=== PATIENT | female | born 1945 ===

== ENCOUNTER 2018-08-22 09:32 | Day surgery (SDC) | payer SELFPAY ==
[2018-08-22 11:25] VITALS: BMI 19.3
[2018-08-22 11:46] VITALS: RESP 18
[2018-08-22 11:56] LABS: BASO % 0.4 % (0.0-2.0); EOS # 0.5 K/uL (0.0-0.7); EOS % 8.2 % (0.0-4.0); HEMOGLOBIN 12.4 g/dL (12.0-16.0); LYMPH # 1.5 K/uL (1.0-4.3); LYMPH % 23.8 % (20.0-40.0); MEAN CELL VOLUME 82.5 fl (81.0-99.0); MEAN CORPUSCULAR HEMOGLOBIN 27.9 pg (27.0-31.0); MEAN CORPUSCULAR HGB CONC 33.9 g/dL (33.0-37.0); MEAN PLATELET VOLUME 9.3 fl (7.2-11.7); MONO # 0.5 K/uL (0.0-0.8); MONO % 8.5 % (0.0-10.0); NEUT # 3.8 K/uL (1.8-7.0); NEUT % 59.1 % (50.0-75.0); NRBC % 0.2 % (0.0-0.0); RBC 4.45 Mil/uL (3.80-5.20); RED CELL DISTRIBUTION WIDTH 14.3 % (11.5-14.5); WHITE BLOOD COUNT 6.4 K/uL (4.8-10.8)
[2018-08-22 11:57] LABS: INR 1.1
[2018-08-22 12:00] LABS: PARTIAL THROMBOPLASTIN TIME 33.4 Seconds (25.6-37.1)
[2018-08-22 12:02] LABS: BLOOD UREA NITROGEN 15 mg/dl (7-17); CALCIUM 9.4 mg/dL (8.4-10.2); GFR NON-AFRICAN AMERICAN > 60
[2018-08-22] MEDS ORDERED: Midazolam 2 MG/2 ML VIAL ONE (12:53)
[2018-08-22] MEDS ORDERED: Lidocaine 1% Inj (20ml) ONE (12:54)
--- NOTE | 2018-08-22 13:05 | CP.SDSHP ---
Same Day Surgery H & P - History Proposed Procedure: US guided Right axillary node biopsy Pre-Op Diagnosis: Enlarged Right axillary node - Allergies Allergies: Allergies No Known Allergies Allergy (Verified 08/22/18 11:50) - Physical Exam Vital Signs: Vital Signs 08/22/18 08/22/18 11:44 11:55 Temperature 97.9 F Pulse Rate 64 64 Respiratory 18 Rate Blood Pressure 146/87 O2 Sat by Pulse 99 Oximetry Mental Status: Alert & Oriented x3 - Impression Impression: Pt with an enlarged right axillary lymph node. Plan US guided Right axillary node biopsy. Pt. Evaluated Today:Candidate for Anesthesia & Procedure: Yes (ASA 2 malampati 2) - Date & Time Date: 08/22/18 Time: 12:50 Short Stay Discharge - Short Stay Discharge Admitting Diagnosis/Reason for Visit: R22.31 Disposition: HOME/ ROUTINE
--- NOTE | 2018-08-22 13:07 | PCM.SURG1 ---
Surgeon's Initial Post Op Note - Surgeon's Notes Surgeon: Zaki Carrasquillo MD Hotel Room Attendant: NONE Type of Anesthesia: IV Sedation Pre-Operative Diagnosis: Right axillary lymph adenopathy Operative Findings: US shows a complex solid large right axillary mass. Post-Operative Diagnosis: Right axillary lymph adenopathy Operation Performed: US guided core biopsy. Three 20-g core specimen obtained. Specimen/Specimens Removed: 20-g core x 3 Estimated Blood Loss: EBL {In ML}: 1 Blood Products Given: N/A Drains Used: No Drains Post-Op Condition: Good Date of Surgery/Procedure: 08/22/18 Time of Surgery/Procedure: 13:05
[2018-08-22] MEDS ORDERED: Lactated Ringer's 1,000 ML IV ONE (13:15)
[2018-08-22 15:14] VITALS: BP 133/73; PULSE 61; TEMP 97.6; O2SAT 96
--- NOTE | 2018-08-24 10:44 | VASCULAR ---
PROCEDURE: Date of procedure: 08/22/2018 Procedure: Ultrasound-guided biopsy of right axillary lymph node, CPT 48883 Ultrasound guidance for biopsy, 24072 HISTORY: Enlarged axillary lymph nodes TECHNIQUE: Following informed consent and procedure time-out, limited ultrasound patient's right axilla demonstrates multiple enlarged axillary lymph nodes which are ovoid shape and hypoechoic. Loss of fatty hilum is demonstrated. The largest lymph node measures 3.5 cm. After the patient axilla was prepped and draped in the usual sterile fashion and the skin anesthetized with lidocaine, a 20 gauge core needle was advanced percutaneously into the largest lymph node. Upon confirmation of needle position, multiple core specimens were obtained and sent for routine pathology. A post biopsy ultrasound showed no hematoma IMPRESSION: Ultrasound-guided core biopsy of enlarged right axillary lymph node.
== END 2018-08-22 15:41 | disposition home or self-care (01) ==
LOC: H.OPSURG 09:32
PROVIDERS: ATTEND Student in an Organized Health Care Education/Training Program
DX: R22.31 Localized swelling, mass and lump, right upper limb (principal)
CPT/HCPCS: 10022; 36415; 76942; 80048; 85025; 85610; 85730; 88305; A4310; J2250; J3010; J7120